=== PATIENT | male | born 1985 | race Caucasian/White ===

== ENCOUNTER 2018-08-29 23:22 | Emergency (ER) | payer SELFPAY ==
[~2018-08-29] VITALS: Ht 172.7 cm; Wt 61.2 kg
[2018-08-29 23:27] VITALS: BP 125/81
[2018-08-29] MEDS ORDERED: Bacitracin Oint UD TOPIC ONE (23:30)
--- NOTE | 2018-08-29 23:30 | NUR ---
ED Nurse Note: pt brought in by [facility] deputies, per deputy statement, pt was urinating on public in front of building, possible ETOH intoxication, pt states he drank today and accidentally fell on his face, noted abrasion next to right side of eye and upper eyebrow, next to eye, no drainage at this time, will cont monitor.
--- NOTE | 2018-08-29 23:33 | Emergency Room Report ---
History of Present Illness General Chief Complaint: Medical Clearance Source: Patient Present Illness HPI Is a 33-year-old male with no past mental history. He was brought in by police for medical clearance. Patient was being arrested for public intoxication and urinating on the property. He fell and hit the sidewalk earlier today. He has abrasion to his face. No loss of consciousness. He denies any other complaint. Tetanus was within 4 years. Mild pain. Allergies: Coded Allergies: No Known Allergies (Unverified , 08/29/18) Patient History Past Medical History: none, see triage record, old chart reviewed Past Surgical History: none Pertinent Family History: none Social History: Reports: alcohol use Immunizations: UTD Reviewed Nursing Documentation: PMH: Agreed; PSxH: Agreed Nursing Documentation-PMH Past Medical History: No Stated History Review of Systems Eye: Denies: eye pain, blurred vision ENT: Denies: ear pain, nose congestion, throat swelling Respiratory: Denies: cough, shortness of breath Cardiovascular: Denies: chest pain, palpitations Gastrointestinal: Denies: abdominal pain, diarrhea, nausea, vomiting Musculoskeletal: Denies: back pain, joint pain Skin: Denies: rash Neurological: Denies: headache, numbness Endocrine: Denies: increased thirst, increased urine Hematologic/Lymphatic: Denies: easy bruising All Other Systems: negative except mentioned in HPI Physical Exam Vital Signs Date Time Temp Pulse Resp B/P (MAP) Pulse Ox O2 Delivery O2 Flow Rate FiO2 08/29/18 23:23 98.8 79 14 97 Room Air 08/29/18 23:27 125/81 vitals normal Sp02 EP Interpretation: reviewed, normal General Appearance: well appearing, no apparent distress, alert, other - Intoxicated Head: normocephalic, other - Abrasion to forehead, temples, face Eyes: bilateral eye PERRL, bilateral eye EOMI ENT: hearing grossly normal, normal pharynx Neck: full range of motion, supple, no meningismus Respiratory: chest non-tender, lungs clear, normal breath sounds Cardiovascular #1: regular rate, rhythm, no murmur Gastrointestinal: normal bowel sounds, non tender, no mass, no organomegaly, no bruit, non-distended Musculoskeletal: back normal, gait/station normal, normal range of motion Psychiatric: mood/affect normal Skin: warm/dry Medical Decision Making Diagnostic Impression: Primary Impression: Alcohol intoxication Qualified Codes: F10.920 - Alcohol use, unspecified with intoxication, uncomplicated Additional Impressions: Head injury, acute Qualified Codes: S09.90XA - Unspecified injury of head, initial encounter Examination, medicolegal reason ER Course Patient with head injury from a fall secondary to alcohol intoxication. No evidence of intracranial injury or bleed. We'll discharge to police officer crime prevention. CT/MRI/US Diagnostic Results CT/MRI/US Diagnostic Results : Imaging Test Ordered: CT head Impression negative per radiologist Last Vital Signs Date Time Temp Pulse Resp B/P (MAP) Pulse Ox O2 Delivery O2 Flow Rate FiO2 08/29/18 23:27 79 16 Room Air 08/29/18 23:27 98.8 125/81 99 Status: improved Disposition: D/C TO LAW [facility]NF[facility]CEMENT IN [facility] Condition: Stable Scripts No Active Prescriptions or Reported Meds Additional Instructions: Follow-up with your doctor in 7 days. Return if worse. Miguel A Aloccer MD August 29, 2018 23:33
[2018-08-30 00:07] VITALS: BP 121/86
--- NOTE | 2018-08-30 00:07 | NUR ---
ED Nurse Note: pt cleared to be d/c per ERMD, pt discharge and aftercare instruction provided w/ prescription to deputies, pt education done via discussion and handout, pt advised to follow up with senior living medical staff, pt verbalized understanding and agrees with plan, vss, ambulatory w/ steady gait, left w/ all belongings, pt accompanied by [facility].
--- NOTE | 2018-08-30 09:27 | Diagnostic Imaging Report ---
Indication: Headache and trauma Technique: Contiguous 5 mm thick transaxial imaging of the head obtained in a Siemens Sensation [address] scanner. Soft tissue and bone windows generated. Automatic Exposure Control was utilized. Total Dose length Product (DLP): 1428.[address] Dose Index Volume (CTDIvol): 70.38 mGy Comparison: none Findings: The size and configuration of the cortical sulci, basal cisterns, and ventricles are within normal limits for age. There is no mass effect, midline shift, or edema identified. There is no evidence of acute hemorrhage or abnormal intra-axial or extra-axial fluid collections. There is no calvarial fracture. There is soft tissue swelling over the right frontal scalp supraorbital region presumably due to contusion injury. Impression: No mass effect, edema or acute bleed. The CT scanner at [facility] is accredited by the [employer] and the scans are performed using dose optimization techniques as appropriate to a performed exam including Automatic Exposure control.
== END 2018-08-30 00:08 ==
LOC: EMR 23:38
DX: F10.129 Alcohol abuse with intoxication, unspecified (principal); S00.81XA Abrasion of other part of head, initial encounter; W19.XXXA Unspecified fall, initial encounter; Y92.9 Unspecified place or not applicable
CPT/HCPCS: 70450; 99284